=== PATIENT | female | born 1980 | race Caucasian/White ===

== ENCOUNTER 2017-12-08 19:31 | Emergency (ER) | payer OTHER, MEDICAID ==
[2017-12-08] MEDS: IBUPROFEN 600 MG TAB PO (22:22)
[2017-12-08] MEDS: ACETAMINOPHEN 500 MG TAB PO (22:22)
== END 2017-12-08 22:37 | disposition home or self-care (01) ==
LOC: FTE 19:31
DX: J06.9 Acute upper respiratory infection, unspecified (principal)
CPT/HCPCS: 99283; Z7502